=== PATIENT | female | born 1940 | race Caucasian/White ===

== ENCOUNTER 2021-06-13 17:12 | Emergency (ER) | payer OTHER, MEDICARE ==
[~2021-06-13] VITALS: Ht 157.5 cm; Wt 60.8 kg
[2021-06-13 20:25] VITALS: BP 166/78
== END 2021-06-13 20:22 | disposition home or self-care (01) ==
LOC: M.ERS 17:12
DX: R51.9 Headache, unspecified (principal); Z90.49 Acquired absence of other specified parts of digestive tract; V89.2XXA Person injured in unspecified motor-vehicle accident, traffic, initial encounter; Y93.89 Activity, other specified; Y92.89 Other specified places as the place of occurrence of the external cause; Y99.8 Other external cause status